=== PATIENT | male | born 1990 | race American Indian/Alaskan Native ===

== ENCOUNTER 2017-02-21 01:17 | Emergency (ER) | payer OTHER ==
[2017-02-21 02:54] LABS: Basophils % (Auto) 0.3 % (0.0-1.8); Eosinophils % (Auto) 3.4 % (0.0-4.3); Hematocrit 46.5 % (35.5-45.6); Hemoglobin 15.7 gm/dl (11.8-15.2); Mean Corpuscular HGB Conc 34 % (32-34); Mean Corpuscular Hemoglobin 29 pg (28-32); Mean Corpuscular Volume 85 fl (84-94); Platelet Count 165 K/mm3 (140-440); Red Blood Count 5.44 M/mm3 (3.65-5.03); Red Cell Distribution Width 13.9 % (13.2-15.2); White Blood Count 7.5 K/mm3 (4.5-11.0)
--- NOTE | 2017-02-21 02:55 | XRay Report ---
FINAL REPORT EXAM: XR CHEST ROUTINE 2V HISTORY: Non productive Cough, Send for report COMPARISON: None available. FINDINGS:: Frontal and lateral views of the chest obtained. Cardiac silhouette is within normal limits. No focal consolidation or effusion. No pneumothorax. Visualized bony thorax is grossly intact. IMPRESSION:: No acute findings.
[2017-02-21 02:58] LABS: Anion Gap 17 mmol/L; Blood Urea Nitrogen 10 mg/dL (9-20); Calcium 8.9 mg/dL (8.4-10.2); Carbon Dioxide 27 mmol/L (22-30); Chloride 102.1 mmol/L (98-107); Glucose 92 mg/dL (75-100); Sodium 142 mmol/L (137-145)
[2017-02-21 03:52] VITALS: BP 133/76
[2017-02-21] MEDS ORDERED: TYLENOL/CODEINE PO ONE (05:32)
[2017-02-21] MEDS ORDERED: CLARITIN PO ONE (05:32)
[2017-02-21] MEDS ORDERED: DELTASONE PO ONE (05:32)
--- NOTE | 2017-02-21 05:48 | Emergency Department Report ---
HPI - General Chief Complaint: Upper Respiratory Infection Time Seen by Provider: 02/21/17 04:56 - HPI HPI: Patient is a 26-year-old male presents to the ED complaining of chest pain worsened with coughing 3 days. Patient states he is runny nose yellowish in nature, productive yellowish cough. She describes chest pain as a stabbing type in nature, nonradiating, localized in the chest region. He denies shortness of breath, dizziness, headache. ED Past Medical Hx - Past Medical History Previous Medical History?: No - Surgical History Past Surgical History?: No - Social History Smoking Status: Never Smoker Substance Use Type: None - Medications Home Medications: Home Medications Medication Instructions Recorded Confirmed Last Taken Type ALBUTEROL Inhaler [ProAir HFA 2 puff IH QID PRN #1 pump 02/21/17 Unknown Rx Inhaler] Acetamin/Codeine 120-12Mg/5 ml 5 ml PO TID #80 ml 02/21/17 Unknown Rx [Tylenol/Codeine 120-12 mg/5 ml] Azithromycin [Zithromax Z-BAY] 250 mg PO DAILY #6 tablet 02/21/17 Unknown Rx Cetirizine HCl [ZyrTEC] 10 mg PO DAILY #30 capsule 02/21/17 Unknown Rx Pseudoephedrine HCl 120 mg PO BID #30 tablet.er 02/21/17 Unknown Rx [Pseudoephedrine ER] ED Review of Systems ROS: Stated complaint: CHEST PAIN, COUGH AND RUNNY NOSE Other details as noted in HPI Constitutional: denies: chills, fever Eyes: denies: eye pain, eye discharge, vision change ENT: congestion. denies: ear pain, throat pain, dental pain, hearing loss Respiratory: cough. denies: shortness of breath, wheezing Cardiovascular: chest pain. denies: palpitations Endocrine: no symptoms reported Gastrointestinal: denies: abdominal pain, nausea, diarrhea Genitourinary: denies: urgency, dysuria, frequency, hematuria Musculoskeletal: denies: back pain, joint swelling, arthralgia Skin: denies: rash, lesions Neurological: denies: headache, weakness, paresthesias Psychiatric: denies: anxiety, depression Hematological/Lymphatic: denies: easy bleeding, easy bruising Physical Exam - Physical Exam Vital Signs: Vital Signs 02/21/17 02/21/17 02/21/17 02:42 03:50 04:05 Temperature 98.1 F 98.7 F Pulse Rate 65 60 Respiratory 16 16 18 Rate Blood Pressure 136/91 133/76 [Right] O2 Sat by Pulse 98 95 96 Oximetry Physical Exam: GENERAL: Alert and oriented x3, no apparent distress, Normal Gait, atraumatic. HEAD: Head is normocephalic and a-traumatic. EYES: Extra ocular muscles are intact. Pupils are equal, round, and reactive to light and accommodation. EARS: symetrical, atraumatic, non tender, ear canal clear and moderate cerumen, tympanic membrance non inflamed. gross auditory nml bilaterally. NOSE: Nose symetrical, Nontender,Nares appeared normal. Clear to yellowish discharge seen in distress MOUTH:Mouth is well hydrated and without lesions. Tonsils nonerythematous or swollen, Uvula midline, Tongue not elevated. Mucous membranes are moist. Posterior pharynx clear, no exudate or lesions. Patent airways. NECK: Supple. Non edematous, No lymphadenopathy or thyromegaly. No C-spine tenderness LUNGS: Symetrical with respiration, No wheezing, no rales or crackles, adventitious lung sounds HEART: S1, S2 present, regular rate and rhythm without murmur, no rubs, no gallops. Non tender to palpation SKIN: Warm and dry, No lesions, No ulceration or induration present. ED Course Vital Signs 02/21/17 02/21/17 02/21/17 02:42 03:50 04:05 Temperature 98.1 F 98.7 F Pulse Rate 65 60 Respiratory 16 16 18 Rate Blood Pressure 136/91 133/76 [Right] O2 Sat by Pulse 98 95 96 Oximetry ED Medical Decision Making - Lab Data Result diagrams: 02/21/17 02:19 02/21/17 02:19 Laboratory Results - last 24 hr 02/21/17 02/21/17 02/21/17 02:19 02:19 02:19 WBC 7.5 RBC 5.44 H Hgb 15.7 H Hct 46.5 H MCV 85 MCH 29 MCHC 34 RDW 13.9 Plt Count 165 Lymph % (Auto) 22.3 Cherry % (Auto) 7.3 Eos % (Auto) 3.4 Baso % (Auto) 0.3 Lymph # 1.7 Cherry # 0.6 Eos # 0.3 Baso # 0.0 Seg Neutrophils % 66.7 Seg Neutrophils # 5.0 VBG pH Sodium 142 Potassium 4.0 Chloride 102.1 Carbon Dioxide 27 Anion Gap 17 BUN 10 Creatinine 1.0 Estimated GFR > 60 BUN/Creatinine Ratio 10.00 Glucose 92 Calcium 8.9 Total Creatine Kinase CK-MB (CK-2) CK-MB (CK-2) Rel Index Troponin T < 0.010 02/21/17 02/21/17 02:40 02:40 WBC RBC Hgb Hct MCV MCH MCHC RDW Plt Count Lymph % (Auto) Cherry % (Auto) Eos % (Auto) Baso % (Auto) Lymph # Cherry # Eos # Baso # Seg Neutrophils % Seg Neutrophils # VBG pH 7.351 Sodium Potassium Chloride Carbon Dioxide Anion Gap BUN Creatinine Estimated GFR BUN/Creatinine Ratio Glucose Calcium Total Creatine Kinase 174 H CK-MB (CK-2) 1.0 CK-MB (CK-2) Rel Index 0.5 Troponin T - Radiology Data Radiology results: report reviewed, image reviewed FINAL REPORT EXAM: XR CHEST ROUTINE 2V HISTORY: Non productive Cough, Send for report COMPARISON: None available. FINDINGS:: Frontal and lateral views of the chest obtained. Cardiac silhouette is within normal limits. No focal consolidation or effusion. No pneumothorax. Visualized bony thorax is grossly intact. IMPRESSION:: No acute findings. Transcribed By: LMA Dictated By: ARTEMIO DOSS MD Electronically Authenticated By: ARTEMIO DOSS MD Signed Date/Time: 02/21/17 0249 - Medical Decision Making 26 [id number] male presents with upper respiratory infection ED course: CBC, CMP, troponin, chest x-ray, EKG ordered on patient. Chest x-ray negative Patient received Tylenol with codeine, Claritin in the ED CBC within normal limits all labs within normal limits discussed findings with patient. Discussed the patient with significant congestion as prescribed. Discussed the patient follow up primary care physician. Assessment patient reports that symptoms to return to ED Vital signs are normal patient is in no acute distress or respiratory distress Critical care attestation.: If time is entered above; I have spent that time in minutes in the direct care of this critically ill patient, excluding procedure time. ED Disposition Clinical Impression: URI, acute Upper respiratory infection Qualifiers: URI type: unspecified URI Qualified Code(s): J06.9 - Acute upper respiratory infection, unspecified Disposition: DC-01 TO HOME OR SELFCARE Is pt being admited?: No Does the pt Need Aspirin: No Condition: Stable Instructions: Upper Respiratory Infection (ED), Acute Bronchitis (ED), Acute Cough (ED) Additional Instructions: Follow-up with her primary care physician If you're symptoms worsen return to ED Prescriptions: Acetamin/Codeine 120-12Mg/5 ml [Tylenol/Codeine 120-12 mg/5 ml] 5 ml PO TID #80 ml ALBUTEROL Inhaler [ProAir HFA Inhaler] 2 puff IH QID PRN #1 pump PRN Reason: Shortness Of Breath Azithromycin [Zithromax Z-BAY] 250 mg PO DAILY #6 tablet Cetirizine HCl [ZyrTEC] 10 mg PO DAILY #30 capsule Pseudoephedrine HCl [Pseudoephedrine ER] 120 mg PO BID #30 tablet.er Referrals: PRIMARY MD GERALD [Primary Care Provider] - 3-5 Days SARANYA JACKSON MD [Referring] - 3-5 Days [facility] [Outside] - 3-5 Days [facility] [Outside] - 3-5 Days Forms: Accompanied Note, Work/School Release Form(ED) Time of Disposition: 06:28
== END 2017-02-21 06:49 | disposition home or self-care (01) ==
LOC: ED 01:17
DX: J06.9 Acute upper respiratory infection, unspecified (principal)
CPT/HCPCS: 36415; 71020; 80048; 82550; 82553; 82805; 84484; 85025; 93005; 93010; 99284; J7512

== ENCOUNTER 2017-05-17 22:30 | Emergency (ER) | payer OTHER ==
[2017-05-17 23:04] VITALS: BP 145/82
[2017-05-18 00:01] LABS: Basophils % (Auto) 0.3 % (0.0-1.8); Eosinophils % (Auto) 2.1 % (0.0-4.3); Hematocrit 52.3 % (35.5-45.6); Hemoglobin 17.7 gm/dl (11.8-15.2); Mean Corpuscular HGB Conc 34 % (32-34); Mean Corpuscular Hemoglobin 29 pg (28-32); Mean Corpuscular Volume 87 fl (84-94); Platelet Count 195 K/mm3 (140-440); Red Blood Count 6.01 M/mm3 (3.65-5.03); Red Cell Distribution Width 13.8 % (13.2-15.2); White Blood Count 8.2 K/mm3 (4.5-11.0)
[2017-05-18 00:18] LABS: Anion Gap 16 mmol/L; BUN/Creatinine Ratio 14; Blood Urea Nitrogen 14 mg/dL (9-20); Calcium 9.6 mg/dL (8.4-10.2); Carbon Dioxide 27 mmol/L (22-30); Chloride 100.8 mmol/L (98-107); Glucose 82 mg/dL (75-100); Potassium 3.9 mmol/L (3.6-5.0); Sodium 140 mmol/L (137-145)
--- NOTE | 2017-05-18 00:22 | Ultrasound Report ---
FINAL REPORT EXAM: US TESTICULAR DOPPLER COMP HISTORY: Right groin pain TECHNIQUE: Routine sonographic evaluation was obtained of the scrotum along the Doppler interrogation of both testicles. FINDINGS: Both testicles are normal in size contour blood flow and echotexture. The right testicle measures 4.1 cm x 2.4 cm x 2.3 cm. The left testicle measures 3.4 cm x 1.6 cm x 2.8 cm. The epididymi appear normal. There is no evidence of hydrocele. There are 2 small benign-appearing lymph nodes in the right inguinal area measuring the 1.1 cm in diameter. IMPRESSION: Normal exam. No evidence of testicular torsion, neoplasm or hydrocele. Two small benign-appearing lymph nodes in the right inguinal chain.
[2017-05-18 03:43] LABS: Bilirubin,Urine NEG (Negative); Blood,Urine NEG (Negative); Ketones,Urine NEG (Negative); Leukocyte Esterase,Urine NEG (Negative); Mucus,Urine FEW /HPF; Nitrite,Urine NEG (Negative); Protein,Urine <15 mg/dL mg/dL (Negative); Urobilinogen,Urine < 2.0 mg/dL (<2.0)
== END 2017-05-18 04:42 | disposition left against medical advice (07) ==
LOC: ED 22:30
DX: R53.1 Weakness (principal); Z53.21 Procedure and treatment not carried out due to patient leaving prior to being seen by health care provider
CPT/HCPCS: 36415; 80048; 81001; 85025; 93975

== ENCOUNTER 2017-12-18 23:19 | Emergency (ER) | payer OTHER ==
[2017-12-19] MEDS ORDERED: MOTRIN PO ONE (01:49)
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
[2017-12-19 04:04] VITALS: BP 134/82
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
--- NOTE | 2017-12-22 14:23 | Cat Scan Report ---
FINAL REPORT PROCEDURE: CT HEAD/BRAIN WO CON TECHNIQUE: Computerized tomography of the head was performed without contrast material. HISTORY: headache COMPARISON: No prior studies are available for comparison. FINDINGS: Skull and scalp: Normal. Paranasal sinuses: There are polyps in the sphenoid sinus. There are no air-fluid levels.. Ventricles and subarachnoid spaces: Normal. Cerebrum: No evidence of hemorrhage, acute infarction or mass . Cerebellum and brainstem: No evidence of hemorrhage, acute infarction or mass. Vasculature: Normal. Comments: None. IMPRESSION: There is no intracranial hemorrhage. There is no edema, mass, mass effect or midline shift.
== END 2017-12-19 04:04 | disposition home or self-care (01) ==
LOC: ED 23:19
DX: S13.4XXA Sprain of ligaments of cervical spine, initial encounter (principal); S00.03XA Contusion of scalp, initial encounter; F17.200 Nicotine dependence, unspecified, uncomplicated; V49.49XA Driver injured in collision with other motor vehicles in traffic accident, initial encounter; W22.11XA Striking against or struck by driver side automobile airbag, initial encounter; Y93.89 Activity, other specified; Y99.8 Other external cause status; Y92.488 Other paved roadways as the place of occurrence of the external cause
CPT/HCPCS: 70450; 72125